=== PATIENT | male | born 1965 | race Caucasian/White ===

== ENCOUNTER 2019-07-25 10:55 | Emergency (ER) | payer BC ==
[2019-07-25] MEDS ORDERED: Lidocaine 1% (PF) 30 ML VIAL ONE (11:14)
[2019-07-25] MEDS ORDERED: Adacel (T-DAP) 0.5 ML SYRINGE ONE (12:06)
[2019-07-25] MEDS ORDERED: Bacitracin 1 PK ONE (12:19)
== END 2019-07-25 12:39 | disposition home or self-care (01) ==
LOC: ERS 10:55
DX: S61.313A Laceration without foreign body of left middle finger with damage to nail, initial encounter (principal); R55 Syncope and collapse; W45.8XXA Other foreign body or object entering through skin, initial encounter
CPT/HCPCS: 11760; 90471; 90715; 94760; J2001